=== PATIENT | female | born 2000 | race Caucasian/White ===

== ENCOUNTER 2021-06-24 22:06 | Emergency (ER) | payer SELFPAY ==
[2021-06-24] MEDS ORDERED: hydrOXYzine HCl 25 MG Tab PO ONE (22:47)
--- NOTE | 2021-06-24 22:53 | EDM.PDOC ---
ED HPI GENERAL MEDICAL PROBLEM - General Chief Complaint: General Stated Complaint: MEDICAL VIA [facility] Time Seen by Provider: 06/24/21 22:28 Source of Information: Reports: Patient History Limitations: Reports: No Limitations - History of Present Illness INITIAL COMMENTS - FREE TEXT/NARRATIVE: 21 yo female presents to ER via EMS following first time trying and eatable THC. She became very anxious, muscle spasms and skin felt funny. She was tachycardic in the ambulance but sinus. She is feeling much better currently. she continues to feel muscle twitching but her anxiety is settling. She is present today with a friend - Related Data Allergies Allergy/AdvReac Type Severity Reaction Status Date / Time No Known Allergies Allergy Verified 06/24/21 22:16 Home Meds: Home Meds Amphetamine/Dextroamphetamine [Adderall] 15 mg PO DAILY 06/24/21 [History] Social & Family History - Tobacco Use Tobacco Use Status *Q: Never Tobacco User - Recreational Drug Use Recreational Drug Use: Yes Recreational Drug Type: Reports: Marijuana/Hashish ED ROS GENERAL - Review of Systems Review Of Systems: See Below Constitutional: Denies: Fever, Chills Respiratory: Denies: Shortness of Breath, Wheezing Cardiovascular: Denies: Chest Pain ED EXAM, GENERAL - Physical Exam Exam: See Below Exam Limited By: No Limitations General Appearance: Alert, WD/WN, No Apparent Distress Neck: Normal Inspection, Supple, Non-Tender, Full Range of Motion. No: Lymphadenopathy (R), Lymphadenopathy (L) Respiratory/Chest: No Respiratory Distress, Lungs Clear, Normal Breath Sounds, No Accessory Muscle Use, Chest Non-Tender Cardiovascular: Tachycardia GI/Abdominal: Normal Bowel Sounds, Soft, Non-Tender Neurological: Alert, Oriented Psychiatric: Anxious Skin Exam: Warm, Dry, Intact Course - Vital Signs Last Recorded V/S: Last Vital Signs Temp 36.4 C 06/24/21 22:14 Pulse 127 H 06/24/21 22:14 Resp 20 06/24/21 22:14 BP 126/69 06/24/21 22:14 Pulse Ox 98 06/24/21 22:14 - Orders/Labs/Meds Orders: Active Orders 24 hr Category Date Time Status hydrOXYzine HCL [Atarax] Med 06/24/21 22:47 Once 25 mg PO ONETIME ONE - Re-Assessments/Exams Free Text/Narrative Re-Assessment/Exam: 06/24/21 22:53 po hydroxyzine given for muscle twitching and anxiety. Encouraged oral fluid intake. discharged home with friend Departure - Departure Time of Disposition: 22:54 Disposition: Home, Self-Care 01 Condition: Good Clinical Impression: Adverse reaction to cannabis Qualifiers: Encounter type: initial encounter Qualified Code(s): T40.7X5A - Adverse effect of cannabis (derivatives), initial encounter - Discharge Information *PRESCRIPTION DRUG MONITORING PROGRAM REVIEWED*: Not Applicable *COPY OF PRESCRIPTION DRUG MONITORING REPORT IN PATIENT KAREL: Not Applicable Referrals: PCP,None [Primary Care Provider] - Additional Instructions: increase fluid intake with goal of 1-1.5 liters per day over the next few days avoid cannabis use in the future rest Sepsis Event Note (ED) - Evaluation Sepsis Screening Result: No Definite Risk - Focused Exam Vital Signs: Vital Signs Temp Pulse Resp BP Pulse Ox 06/24/21 22:14 36.4 C 127 H 20 126/69 98 - My Orders Last 24 Hours: My Active Orders 06/24/21 22:47 hydrOXYzine HCL [Atarax] 25 mg PO ONETIME ONE - Assessment/Plan Last 24 Hours: My Active Orders 06/24/21 22:47 hydrOXYzine HCL [Atarax] 25 mg PO ONETIME ONE
== END 2021-06-24 23:22 | disposition home or self-care (01) ==
LOC: JP.ED 22:06
DX: F41.9 Anxiety disorder, unspecified (principal); M62.838 Other muscle spasm; R25.3 Fasciculation; T40.7X5A Adverse effect of cannabis (derivatives), initial encounter; R00.0 Tachycardia, unspecified
CPT/HCPCS: 99284; A9270